=== PATIENT | female | born 1970 ===

== ENCOUNTER 2025-07-10 23:09 | Emergency (ER) | payer MEDICARE, OTHER ==
[~2025-07-10] VITALS: Ht 170.2 cm; Wt 59.0 kg
== END 2025-07-11 01:07 | disposition home or self-care (01) ==
LOC: ER 23:09
DX: S01.111A Laceration without foreign body of right eyelid and periocular area, initial encounter (principal); W22.8XXA Striking against or struck by other objects, initial encounter
CPT/HCPCS: 12011; 99282-25; A9270